=== PATIENT | male | born 1995 | race Caucasian/White ===

== ENCOUNTER 2018-09-14 12:36 | Emergency (ER) | payer BC ==
[~2018-09-14] VITALS: Ht 180.3 cm; Wt 104.5 kg
[2018-09-14 12:58] VITALS: TEMP 98.5
[2018-09-14 13:54] VITALS: BP 129/82; PULSE 92
== END 2018-09-14 13:58 | disposition home or self-care (01) ==
LOC: COL.ER 12:36
DX: S70.01XA Contusion of right hip, initial encounter (principal); V00.131A Fall from skateboard, initial encounter; Y92.410 Unspecified street and highway as the place of occurrence of the external cause